=== PATIENT | male | born 1940 | race Caucasian/White ===

== ENCOUNTER 2023-08-14 09:43 | Inpatient (IN) | payer MEDICARE, OTHER ==
[~2023-08-14] VITALS: Ht 177.8 cm; Wt 91.6 kg
[~2023-08-14 09:43] MED LIST: ASPI81CH43 PO; BUDE160A3 IN; CLOP75TA28 OR; GLIP5TAB12 OR; METO25TA93 OR; NITR0.4S31 SL; PANTPAK; PROVENTIL HFA; SIMV80TA2 OR; VALS160T4 OR
[2023-08-14 09:59] VITALS: PULSE 67; RESP 26; O2SAT 97
[2023-08-14] MEDS ORDERED: ASPirin 81 mg TAB PO ONE (10:15)
[2023-08-14] MEDS ORDERED: SODIUM CHLORIDE 0.9% 1,000 ML IV ONE (10:15)
[2023-08-14 10:33] LABS: Basophils # (auto) 0 10 ^3/uL (0-0.2); Basophils % (auto) 0.7 % (0.0-2.0); Eosinophils # (auto) 0.1 10 ^3/uL (0-0.8); Eosinophils % (auto) 1.9 % (0.0-7.0); Hematocrit 37.1 % (41.0-53.0); Hemoglobin 12.3 g/dL (13.5-17.5); Lymphocytes # (auto) 0.7 10 ^3/uL (0.4-5.4); Lymphocytes % (auto) 9.5 % (10.0-50.0); Mean Corpuscular Hemoglobin 31.5 pg (28.0-32.0); Mean Corpuscular Hgb Conc. 33.2 g/dL (32.0-36.0); Mean Corpuscular Volume 94.9 fL (80.0-100.0); Monocytes # (auto) 0.9 10 ^3/uL (0-1.3); Monocytes % (auto) 13.2 % (0.0-12.0); Neutrophils # (auto) 5.1 10 ^3/uL (1.6-8.6); Neutrophils % (auto) 74.7 % (37.0-80.0); Red Cell Distribution Width 14.7 % (11.8-14.3); White Blood Cell 6.9 10^3/uL (4.4-10.8)
[2023-08-14 11:36] LABS: Prothrombin Time 10.9 sec (9.3-11.8)
[2023-08-14 11:37] LABS: INR 1.04 (0.9-1.15); Partial Thromboplastin Time 26.5 SEC (24.5-34.5)
[2023-08-14] MEDS ORDERED: FUROSEMIDE 20 MG/2 ML VIAL IV ONE (11:45)
[2023-08-14] MEDS ORDERED: IPRATROPIUM BROM 0.5 MG/2.5ML INH SOL NEB ONE (11:45)
[2023-08-14] MEDS ORDERED: ALBUTEROL SULF 2.5 MG/0.5ML(0.5%) NEB SOLN NEB ONE (11:45)
[2023-08-14] MEDS ORDERED: methylPREDNISolone SOD SUCC 125 MG/2 ML VL IV ONE (11:45)
[2023-08-14] MEDS: AZITHROMYCIN 500MG/ 250ML 250 ML IV ONE ×2 (11:56→12:10)
[2023-08-14 12:00] LABS: Chloride 101 mmol/L (98-107); Sodium 135 mmol/L (136-145)
[2023-08-14 12:02] LABS: Anion Gap 9 (5-15); Carbon Dioxide 25 mmol/L (20-30)
[2023-08-14 12:07] LABS: Glucose 143 mg/dL (74-106)
[2023-08-14 12:08] LABS: Alkaline Phosphatase 58 U/L (46-116)
[2023-08-14 12:09] LABS: Aspartate Aminotransferase 20 U/L (13-40)
[2023-08-14 12:10] LABS: Bilirubin, Total 0.7 mg/dL (0.2-1.0); Total Protein 6.6 g/dL (5.7-8.2)
[2023-08-14 12:15] LABS: Alanine Aminotransferase 17 U/L (7-40); Albumin 3.7 g/dL (3.2-4.8); BUN/Creatinine Ratio 11.7 (10.0-20.0); Blood Urea Nitrogen 16 mg/dL (9-23); Potassium 4.6 mmol/L (3.5-5.1)
[2023-08-14] MEDS ORDERED: cefTRIAXone 1GM/50ML D5W 50 ML IV ONE (12:15)
[2023-08-14 14:33] LABS: Urine Bacteria NONE SEEN /hpf (None Seen); Urine Blood Negative /uL (Negative); Urine Clarity Clear (Clear); Urine Color Colorless (Yellow); Urine Protein, UAD Negative (Negative); Urine Specific Gravity 1.013 (1.001-1.035); Urine Urobilinogen Normal (Negative); Urine WBC <1 /hpf (0 - 3)
[2023-08-14] MEDS ORDERED: ACETAMINOPHEN 325 MG TAB PO PRN (17:00)
[2023-08-14] MEDS ORDERED: ONDANSETRON HCL 4 MG/2 ML VIAL IV PRN (17:00)
[2023-08-14 18:49] LABS: Triglycerides 106 mg/dL (< 150)
[2023-08-14 18:50] LABS: LDL Cholesterol 101 mg/dL (< 100)
[2023-08-14 18:51] LABS: Cholesterol 154 mg/dL (< 200); HDL Cholesterol 42 mg/dL (40-59)
[2023-08-14] MEDS: FUROSEMIDE 20 MG/2 ML VIAL IV SCH (19:00)
[2023-08-14 19:19] LABS: INR 1.06 (0.9-1.15); Prothrombin Time 11.1 sec (9.3-11.8)
[2023-08-14 19:30] VITALS: PULSE 74; RESP 14; O2SAT 96
[2023-08-14] MEDS: NITROGLYCERIN 0.4 MG SL TAB SL PRN (20:32)
[2023-08-14 22:06] VITALS: PULSE 70; RESP 18; O2SAT 90
[2023-08-14] MEDS: IPRATROPIUM BROM 0.5 MG/2.5ML INH SOL NEB SCH (22:06)
[2023-08-14] MEDS: ALBUTEROL SULF 2.5 MG/0.5ML(0.5%) NEB SOLN NEB SCH (22:06)
[2023-08-14 22:16] VITALS: PULSE 66; RESP 18; O2SAT 93
[2023-08-14 22:34] VITALS: BP 127/69; PULSE 66; RESP 18; TEMP 97.5; O2SAT 93
[2023-08-14 22:41] LABS: COVID19 ANTIGEN SOFIA FIA NEGATIVE (NEGATIVE); Rapid Influenza A Negative (Negative); Rapid Influenza B Negative (Negative)
[2023-08-15] VITALS (16 sets, daily range): BP systolic 116–153; BP diastolic 62–73; PULSE 65–81; RESP 16–22; TEMP 97.4–98.6; O2SAT 91–100
[2023-08-15] MEDS: methylPREDNISolone SOD SUCC 40 MG/ML VL IV SCH ×4 (00:29→21:53)
[2023-08-15] MEDS: ATORVASTATIN 20 MG TAB PO SCH ×2 (00:30→21:53)
[2023-08-15] MEDS: IPRATROPIUM BROM 0.5 MG/2.5ML INH SOL NEB SCH ×6 (02:00→22:18)
[2023-08-15] MEDS: ALBUTEROL SULF 2.5 MG/0.5ML(0.5%) NEB SOLN NEB SCH ×6 (02:00→22:18)
[2023-08-15] MEDS: FUROSEMIDE 20 MG/2 ML VIAL IV SCH ×2 (05:45→17:31)
[2023-08-15 06:06] LABS: Basophils # (auto) 0 10 ^3/uL (0-0.2); Basophils % (auto) 0.1 % (0.0-2.0); Eosinophils # (auto) 0 10 ^3/uL (0-0.8); Hemoglobin 12.4 g/dL (13.5-17.5); Lymphocytes # (auto) 0.3 10 ^3/uL (0.4-5.4); Mean Corpuscular Hemoglobin 31.8 pg (28.0-32.0); Mean Corpuscular Hgb Conc. 33.5 g/dL (32.0-36.0); Mean Corpuscular Volume 95.1 fL (80.0-100.0); Monocytes # (auto) 0.2 10 ^3/uL (0-1.3); Monocytes % (auto) 2.8 % (0.0-12.0); Neutrophils # (auto) 5.8 10 ^3/uL (1.6-8.6); Neutrophils % (auto) 92.1 % (37.0-80.0); Red Blood Cells 3.89 10^6/uL (4.5-5.90); Red Cell Distribution Width 14.5 % (11.8-14.3); White Blood Cell 6.3 10^3/uL (4.4-10.8)
[2023-08-15 06:32] LABS: Alanine Aminotransferase 16 U/L (7-40); Albumin 3.9 g/dL (3.2-4.8); Alkaline Phosphatase 59 U/L (46-116); Anion Gap 14 (5-15); Aspartate Aminotransferase 19 U/L (13-40); BUN/Creatinine Ratio 13.2 (10.0-20.0); Blood Urea Nitrogen 20 mg/dL (9-23); Calcium 8.7 mg/dL (8.7-10.4); Carbon Dioxide 19 mmol/L (20-30); Chloride 100 mmol/L (98-107); Potassium 4.2 mmol/L (3.5-5.1); Sodium 133 mmol/L (136-145)
[2023-08-15 06:33] LABS: Bilirubin, Total 0.5 mg/dL (0.2-1.0); Total Protein 6.8 g/dL (5.7-8.2)
[2023-08-15 06:48] LABS: Glucose 258 mg/dL (74-106)
[2023-08-15] MEDS ORDERED: cefTRIAXone 1GM/50ML D5W 50 ML IV SCH (09:00)
[2023-08-15] MEDS: cefTRIAXone 1GM/50ML D5W 50 ML IV SCH ×2 (09:00→13:21)
[2023-08-15] MEDS: CLOPIDOGREL BISULFATE 75 MG TAB PO SCH (09:19)
[2023-08-15] MEDS: ASPirin 81 mg TAB PO SCH ×3 (09:19→10:00)
[2023-08-15] MEDS: DOCUSATE SOD 100 MG CAP PO SCH (09:19)
[2023-08-15] MEDS: PANTOPRAZOLE 40 MG/10 ML VIAL INJ IV SCH (09:21)
[2023-08-15] MEDS: VALSARTAN 80 MG TAB PO SCH (09:21)
[2023-08-15] MEDS: METOPROLOL SUCCINATE XL 50 MG TAB PO SCH (09:22)
[2023-08-15] MEDS ORDERED: ASPirin 81 mg TAB PO SCH (10:00)
[2023-08-15] MEDS ORDERED: GLUC1MIS2 VI (11:31)
[2023-08-15] MEDS ORDERED: LOSA100T58 PO (11:31)
[2023-08-15] MEDS ORDERED: FURO1TAB33 PO (11:31)
[2023-08-15] MEDS ORDERED: FINA5TAB4 PO (11:31)
[2023-08-15] MEDS ORDERED: DEXT30LI OR (11:31)
[2023-08-15] MEDS ORDERED: GLIP5TAB12 PO (11:31)
[2023-08-15] MEDS ORDERED: BUM1T PO (11:31)
[2023-08-15] MEDS ORDERED: ACET-1881 PO (11:31)
[2023-08-15] MEDS ORDERED: MULT-1018 OR (11:31)
[2023-08-15] MEDS ORDERED: RANO10003 PO (11:31)
[2023-08-15] MEDS ORDERED: FLUT1AER3 IN (11:31)
[2023-08-15] MEDS ORDERED: LEVO25TA6 PO (11:31)
[2023-08-15] MEDS ORDERED: AMIO200T33 PO (11:31)
[2023-08-15] MEDS ORDERED: APIX2.5T PO (11:31)
[2023-08-15] MEDS ORDERED: TRAM50TA2 PO (11:31)
[2023-08-15] MEDS ORDERED: INSU70IN3 SC ×2 (11:31)
[2023-08-15] MEDS ORDERED: DEXL60CA4 PO (11:38)
[2023-08-15] MEDS ORDERED: TIOT17SP IN (11:38)
[2023-08-15] MEDS ORDERED: METH-1182 PO (11:38)
[2023-08-15] MEDS ORDERED: NITR0.4D5 TD (11:38)
[2023-08-15] MEDS: guaiFENesin-DM 100/10mg/5ml SYR PO PRN ×2 (12:12→20:27)
[2023-08-15] MEDS ORDERED: DOXYCYCLINE 100 MG TAB/CAP PO ONE (12:45)
[2023-08-15] MEDS ORDERED: DEXTROSE (50%) 50ML SYRG IV PRN (13:00)
[2023-08-15] MEDS ORDERED: ENOXAPARIN SOD 60 MG/0.6 ML SYRINGE SC ONE (13:15)
[2023-08-15] MEDS ORDERED: ALBU108A5 INH (15:49)
[2023-08-15] MEDS ORDERED: ACETAMINOPHEN 325 MG TAB PO PRN (17:15)
[2023-08-15] MEDS: ACCU-CHEK COMFORT CURVE STRIP VI SCH ×2 (17:30→21:59)
[2023-08-15] MEDS: InsuLIN REG 1unit/0.01ml Soln (100units/ml) SC SCH ×2 (17:33→22:00)
[2023-08-15] MEDS: NITROGLYCERIN 0.4 MG SL TAB SL PRN ×2 (20:02→20:20)
[2023-08-15] MEDS: DOXYCYCLINE 100 MG TAB/CAP PO SCH (21:53)
[2023-08-15] MEDS: RANOLAZINE ER 500 MG TAB PO SCH (21:53)
[2023-08-15] MEDS: ENOXAPARIN SOD 100 MG/1 ML SYRINGE SC SCH (21:54)
[2023-08-15] MEDS ORDERED: HYDROmorphone HCL 2 MG/ML VL/or syr IV ONE (22:30)
[2023-08-16] VITALS (17 sets, daily range): BP systolic 129–177; BP diastolic 74–91; PULSE 60–78; RESP 16–22; TEMP 97.4–98.2; O2SAT 90–100
[2023-08-16] MEDS: ALBUTEROL SULF 2.5 MG/0.5ML(0.5%) NEB SOLN NEB SCH ×6 (02:00→22:23)
[2023-08-16] MEDS: IPRATROPIUM BROM 0.5 MG/2.5ML INH SOL NEB SCH ×6 (02:00→22:23)
[2023-08-16] MEDS: FUROSEMIDE 20 MG/2 ML VIAL IV SCH ×2 (05:53→17:35)
[2023-08-16] MEDS: methylPREDNISolone SOD SUCC 40 MG/ML VL IV SCH ×3 (05:54→21:57)
[2023-08-16] MEDS: guaiFENesin-DM 100/10mg/5ml SYR PO PRN ×2 (06:16→22:43)
[2023-08-16] MEDS: LEVOTHYROXINE SODIUM 25 MCG TAB PO SCH (06:16)
[2023-08-16] MEDS: ACCU-CHEK COMFORT CURVE STRIP VI SCH ×4 (06:19→21:57)
[2023-08-16] MEDS: InsuLIN REG 1unit/0.01ml Soln (100units/ml) SC SCH ×4 (06:21→22:14)
[2023-08-16] MEDS: RANOLAZINE ER 500 MG TAB PO SCH ×2 (09:36→21:56)
[2023-08-16] MEDS: ENOXAPARIN SOD 100 MG/1 ML SYRINGE SC SCH ×2 (09:36→21:58)
[2023-08-16] MEDS: cefTRIAXone 1GM/50ML D5W 50 ML IV SCH (09:36)
[2023-08-16] MEDS: PANTOPRAZOLE 40 MG/10 ML VIAL INJ IV SCH (09:36)
[2023-08-16] MEDS: CLOPIDOGREL BISULFATE 75 MG TAB PO SCH (09:36)
[2023-08-16] MEDS: DOCUSATE SOD 100 MG CAP PO SCH (09:38)
[2023-08-16] MEDS: FINASTERIDE 5 MG TAB PO SCH (09:38)
[2023-08-16] MEDS: METOPROLOL SUCCINATE XL 50 MG TAB PO SCH (09:38)
[2023-08-16] MEDS: DOXYCYCLINE 100 MG TAB/CAP PO SCH ×2 (09:38→21:56)
[2023-08-16] MEDS: ASPirin 81 mg TAB PO SCH (09:39)
[2023-08-16] MEDS: AMIODARONE HCL 200 MG TAB PO SCH (09:39)
[2023-08-16] MEDS: MULTIPLE VITAMIN TAB PO SCH (11:20)
[2023-08-16] MEDS: VALSARTAN 80 MG TAB PO SCH (11:28)
[2023-08-16] MEDS ORDERED: HYDROmorphone HCL 2 MG/ML VL/or syr IV PRN (15:45)
[2023-08-16] MEDS: ATORVASTATIN 20 MG TAB PO SCH (21:56)
[2023-08-16] MEDS: hydrALAZINE HCL 20 MG/ML VL IV PRN (23:24)
[2023-08-17] VITALS (14 sets, daily range): BP systolic 140–159; BP diastolic 68–83; PULSE 63–83; RESP 17–19; TEMP 36.4; O2SAT 92–99
[2023-08-17] MEDS: IPRATROPIUM BROM 0.5 MG/2.5ML INH SOL NEB SCH ×4 (02:13→13:56)
[2023-08-17] MEDS: ALBUTEROL SULF 2.5 MG/0.5ML(0.5%) NEB SOLN NEB SCH ×4 (02:13→13:56)
[2023-08-17] MEDS: FUROSEMIDE 20 MG/2 ML VIAL IV SCH (05:50)
[2023-08-17] MEDS: methylPREDNISolone SOD SUCC 40 MG/ML VL IV SCH ×2 (05:50→14:48)
[2023-08-17] MEDS: LEVOTHYROXINE SODIUM 25 MCG TAB PO SCH (06:07)
[2023-08-17] MEDS: ACCU-CHEK COMFORT CURVE STRIP VI SCH ×3 (06:07→17:00)
[2023-08-17] MEDS: InsuLIN REG 1unit/0.01ml Soln (100units/ml) SC SCH ×3 (06:09→17:00)
[2023-08-17] MEDS: PANTOPRAZOLE 40 MG/10 ML VIAL INJ IV SCH (09:26)
[2023-08-17] MEDS: guaiFENesin-DM 100/10mg/5ml SYR PO PRN (09:26)
[2023-08-17] MEDS: cefTRIAXone 1GM/50ML D5W 50 ML IV SCH (09:27)
[2023-08-17] MEDS: ENOXAPARIN SOD 100 MG/1 ML SYRINGE SC SCH (09:27)
[2023-08-17] MEDS: METOPROLOL SUCCINATE XL 50 MG TAB PO SCH (09:28)
[2023-08-17] MEDS: DOCUSATE SOD 100 MG CAP PO SCH (09:29)
[2023-08-17] MEDS: VALSARTAN 80 MG TAB PO SCH (09:29)
[2023-08-17] MEDS: DOXYCYCLINE 100 MG TAB/CAP PO SCH (09:30)
[2023-08-17] MEDS: CLOPIDOGREL BISULFATE 75 MG TAB PO SCH (09:30)
[2023-08-17] MEDS: MULTIPLE VITAMIN TAB PO SCH (09:30)
[2023-08-17] MEDS: FINASTERIDE 5 MG TAB PO SCH (09:30)
[2023-08-17] MEDS: RANOLAZINE ER 500 MG TAB PO SCH (09:30)
[2023-08-17] MEDS: AMIODARONE HCL 200 MG TAB PO SCH (09:30)
[2023-08-17] MEDS: ASPirin 81 mg TAB PO SCH (09:31)
[2023-08-17] MEDS: hydrALAZINE HCL 20 MG/ML VL IV PRN (12:12)
[2023-08-17] MEDS ORDERED: DOX100T PO (15:04)
== END 2023-08-17 17:11 | disposition home or self-care (01) | DRG 177 ==
LOC: EDBD 09:43 → ER 09:43 → TELE 17:48 → EAST 17:48 → TELE-EAST 23:38 → EAST 08-15 13:53
PROVIDERS: ADMIT Nurse Practitioner Family; ATTEND Internal Medicine
DX: J15.69 Pneumonia due to other Gram-negative bacteria (principal); I50.21 Acute systolic (congestive) heart failure; J96.20 Acute and chronic respiratory failure, unspecified whether with hypoxia or hypercapnia; N17.0 Acute kidney failure with tubular necrosis; C34.91 Malignant neoplasm of unspecified part of right bronchus or lung; J44.1 Chronic obstructive pulmonary disease with (acute) exacerbation; J44.0 Chronic obstructive pulmonary disease with (acute) lower respiratory infection; Z66 Do not resuscitate; I11.0 Hypertensive heart disease with heart failure; Z20.822 Contact with and (suspected) exposure to COVID-19; E11.21 Type 2 diabetes mellitus with diabetic nephropathy; I25.10 Atherosclerotic heart disease of native coronary artery without angina pectoris; I25.2 Old myocardial infarction; Z79.01 Long term (current) use of anticoagulants; Z79.02 Long term (current) use of antithrombotics/antiplatelets; Z79.84 Long term (current) use of oral hypoglycemic drugs; Z79.899 Other long term (current) drug therapy; Z85.118 Personal history of other malignant neoplasm of bronchus and lung; Z85.51 Personal history of malignant neoplasm of bladder; Z88.1 Allergy status to other antibiotic agents; Z95.0 Presence of cardiac pacemaker; Z98.61 Coronary angioplasty status; Z99.81 Dependence on supplemental oxygen; Z88.8 Allergy status to other drugs, medicaments and biological substances; Z88.6 Allergy status to analgesic agent; Z95.1 Presence of aortocoronary bypass graft
CPT/HCPCS: 36415; 71045; 71250; 78582; 80053; 80061; 81001; 82962; 83036; 83735; 83880; 84443; 84484; 85025; 85379; 85610; 85730; 87426; 87804; 93005; 93306; 93970; 94640; 96365; 96375; C9113; G0378; J1815